=== PATIENT | male | born 1990 | race Two or more races ===

== ENCOUNTER 2017-04-29 14:59 | Emergency (ER) | payer OTHER ==
[~2017-04-29] VITALS: Ht 182.9 cm; Wt 72.6 kg
--- NOTE | 2017-04-29 15:23 | NUR ---
PT BIB SELF C/O MID-EPIGASTRIC PAIN AND N/V TODAY. DENIES HEMATEMESIS. DENIES DIARRHEA, URINARY SYMPTOMS. RESP EVEN UNLABORED. SKIN WARM NONDIAPHORETIC. AMBULATORY WITH STEADY GAIT. ABD SOFT NONTENDER. IN ER BED 12.
[2017-04-29 15:33] LABS: BASOPHILS # (AUTO) 0.1 /CMM (0.0-0.2); BASOPHILS % (AUTO) 0.3 % (0.0-2.0); EOSINOPHILS # (AUTO) 0.3 /CMM (0.0-0.7); EOSINOPHILS % (AUTO) 1.5 % (0.0-6.0); HEMATOCRIT 48 % (39-51); HEMOGLOBIN 15.9 g/dL (13.5-17.5); LYMPHOCYTES # (AUTO) 1.3 /CMM (0.8-4.8); LYMPHOCYTES % (AUTO) 5.8 % (20.0-44.0); MEAN CORPUSCULAR HEMOGLOBIN 31 PG (26.0-33.0); MEAN CORPUSCULAR HGB CONC 34 g/dl (31.0-36.0); MEAN CORPUSCULAR VOLUME 93 fL (80-96); MONOCYTES # (AUTO) 1.6 /CMM (0.1-1.30); MONOCYTES % (AUTO) 6.8 % (2.0-12.0); NEUTROPHILS # (AUTO) 19.8 /CMM (1.8-8.9); NEUTROPHILS % (AUTO) 85.6 % (43.0-81.0); PLATELET COUNT (AUTO) 237 /CMM (150-450); RDW COEFFICIENT OF VARIATION 12.9 (11.5-15.0); RED BLOOD CELL COUNT(AUTO) 5.09 MIL/uL (4.5-6.0); WHITE BLOOD COUNT (AUTO) 23.1 K/uL (4.3-11.0)
[2017-04-29 15:40] LABS: CALCIUM, SERUM 9.2 mg/dL (8.5-10.1); CREATININE 0.8 mg/dL (0.6-1.3); POTASSIUM 4.2 mmol/L (3.5-5.1)
[2017-04-29 15:46] LABS: ALBUMIN 4.7 g/dL (3.4-5.0); BILIRUBIN,DIRECT 0.2 mg/dL (0.0-0.2); BILIRUBIN,TOTAL 0.9 mg/dL (0.2-1.0); TOTAL PROTEIN, SERUM 8.6 g/dL (6.4-8.2)
[2017-04-29 15:59] LABS: BAND % (MANUAL) 2 % (0.0-5.0); EOSINOPHILS % (MANUAL) 1 % (0-4); LYMPHOCYTES % (MANUAL) 6 % (16-48); MONOCYTES % (MANUAL) 5 % (0-11.0); NEUTROPHILS % (MANUAL) 86 (42-76)
[2017-04-29] MEDS ORDERED: ONDANSETRON 4 MG TAB.RAPDIS ONE (16:02)
[2017-04-29] MEDS: ONDANSETRON HCL/PF 4 MG/2 ML VIAL IVP ONE (16:13)
[2017-04-29] MEDS: IV NS 0.9% 1,000 ML BAG IV ONE ×2 (16:13→17:05)
--- NOTE | 2017-04-29 16:13 | NUR ---
REFUSED IVF AND IV ZOFRAN DESPITE EDUCATION ON BENEFITS AND RISKS. AGREED TO TAKE ZOFRAN ORALLY AND ORAL FLUIDS. PA NOTIFIED. ZOFRAN ODT ADMINISTERED PER PA.
[2017-04-29] MEDS ORDERED: IV NS 0.9% 250 ML IV ONE (16:17)
[2017-04-29] MEDS ORDERED: IOHEXOL-300 100 ML VIAL IV ONE (16:17)
--- NOTE | 2017-04-29 16:30 | NUR ---
PT CONSENTS TO IV ACCESS AT THIS TIME; 18G LAC STARTED, TOLERATED WELL.
--- NOTE | 2017-04-29 17:55 | NUR ---
Patient discharged to home in stable condition. Written and verbal after care instructions given. Patient verbalizes understanding of instruction. IV removed. Catheter intact and site benign. Pressure and 4x4 applied to site. No bleeding noted. AMBULATORY WITH STEADY GAIT.
[2017-04-29 17:58] VITALS: BP 124/76
== END 2017-04-29 17:59 | disposition home or self-care (01) ==
LOC: ER 15:07
DX: K52.9 Noninfective gastroenteritis and colitis, unspecified (principal); D72.829 Elevated white blood cell count, unspecified; D72.825 Bandemia
CPT/HCPCS: 36415; 74160; 80048; 80076; 83690; 85025; 96360; 99285; A4606; J7030 ×2; J7050; Q0162; Q9967; Z7610